=== PATIENT | male | born 1945 | race Caucasian/White ===

== ENCOUNTER → 2016-05-27 | Outpatient (CLI) | payer MEDICARE, OTHER ==
[2016-05-27 15:29] LABS: ABSOLUTE EOSINOPHILS # (AUTO) 0.2 10^3/uL (0.0-0.6); ABSOLUTE LYMPHOCYTES (AUTO) 1.6 10^3/uL (0.5-4.7); ABSOLUTE MONOCYTES (AUTO) 0.8 10^3/uL (0.1-1.4); ABSOLUTE NEUT (AUTO) 8.6 10^3/uL (1.7-8.2); BASOPHILS % (AUTO) 0.3 % (0-2); HEMATOCRIT 44.1 % (37.9-51.0); HEMOGLOBIN 14.8 g/dL (13.5-17.0); HGB HCT DIFFERENCE 0.3; LYMPHOCYTES % (AUTO) 14.3 % (13-45); MEAN CORPUSCULAR HEMOGLOBIN 27.4 pg (27.0-33.4); MEAN CORPUSCULAR HGB CONC 33.5 g/dL (32.0-36.0); MEAN CORPUSCULAR VOLUME 82 fl (80-97); MONOCYTES % (AUTO) 7.5 % (3-13); RED CELL DISTRIBUTION WIDTH 15.5 % (11.5-14.0); SEGMENTED NEUTROPHILS % (AUTO) 75.9 % (42-78); WHITE BLOOD COUNT 11.3 10^3/uL (4.0-10.5)
[2016-05-27 15:53] LABS: ALANINE AMINOTRANSFERASE 68 U/L (21-72); ALBUMIN 4.4 g/dL (3.5-5.0); ALKALINE PHOSPHATASE 117 U/L (38-126); ANION GAP 11 (5-19); ASPARTATE AMINO TRANSFERASE 48 U/L (17-59); BILIRUBIN,TOTAL 0.6 mg/dL (0.2-1.3); BLOOD UREA NITROGEN 21 mg/dL (7-20); CALCIUM 9.8 mg/dL (8.4-10.2); CARBON DIOXIDE 36 mmol/L (22-30); CHLORIDE 97 mmol/L (98-107); CREATININE RESULT 0.89 mg/dL (0.52-1.25); GLUCOSE 106 mg/dL (75-110); MAGNESIUM 1.9 mg/dL (1.6-2.3); POTASSIUM 4.3 mmol/L (3.6-5.0); SODIUM 144.3 mmol/L (137-145); TOTAL PROTEIN 7.5 g/dL (6.3-8.2)
== END ==
LOC: LAB 15:08
PROVIDERS: ATTEND Internal Medicine
DX: I12.9 Hypertensive chronic kidney disease with stage 1 through stage 4 chronic kidney disease, or unspecified chronic kidney disease (principal); N18.9 Chronic kidney disease, unspecified; I50.9 Heart failure, unspecified; E83.42 Hypomagnesemia
CPT/HCPCS: 36415; 80053; 83735; 84443; 85025

== ENCOUNTER → 2016-06-13 | Outpatient (CLI) | payer MEDICARE, OTHER ==
[2016-06-13 14:23] LABS: ABSOLUTE EOSINOPHILS # (AUTO) 0.2 10^3/uL (0.0-0.6); ABSOLUTE LYMPHOCYTES (AUTO) 1.3 10^3/uL (0.5-4.7); ABSOLUTE MONOCYTES (AUTO) 0.8 10^3/uL (0.1-1.4); ABSOLUTE NEUT (AUTO) 6.8 10^3/uL (1.7-8.2); BASOPHILS % (AUTO) 0.5 % (0-2); EOSINOPHILS % (AUTO) 2.5 % (0-6); HEMATOCRIT 41.6 % (37.9-51.0); HEMOGLOBIN 13.5 g/dL (13.5-17.0); HGB HCT DIFFERENCE -1.1; LYMPHOCYTES % (AUTO) 14.3 % (13-45); MEAN CORPUSCULAR HEMOGLOBIN 26.8 pg (27.0-33.4); MEAN CORPUSCULAR HGB CONC 32.4 g/dL (32.0-36.0); MEAN CORPUSCULAR VOLUME 83 fl (80-97); RED BLOOD COUNT 5.02 10^6/uL (4.35-5.55); RED CELL DISTRIBUTION WIDTH 15.6 % (11.5-14.0); SEGMENTED NEUTROPHILS % (AUTO) 73.7 % (42-78); WHITE BLOOD COUNT 9.2 10^3/uL (4.0-10.5)
[2016-06-13 14:48] LABS: ALANINE AMINOTRANSFERASE 66 U/L (21-72); ALBUMIN 3.5 g/dL (3.5-5.0); ALKALINE PHOSPHATASE 100 U/L (38-126); ANION GAP 12 (5-19); ASPARTATE AMINO TRANSFERASE 57 U/L (17-59); BILIRUBIN,TOTAL 0.6 mg/dL (0.2-1.3); BLOOD UREA NITROGEN 22 mg/dL (7-20); CALCIUM 9.3 mg/dL (8.4-10.2); CARBON DIOXIDE 31 mmol/L (22-30); CHLORIDE 99 mmol/L (98-107); CREATININE RESULT 1.22 mg/dL (0.52-1.25); GLUCOSE 121 mg/dL (75-110); MAGNESIUM 1.6 mg/dL (1.6-2.3); POTASSIUM 4.8 mmol/L (3.6-5.0); SODIUM 141.6 mmol/L (137-145); TOTAL PROTEIN 7.2 g/dL (6.3-8.2)
== END ==
LOC: LAB 14:05
PROVIDERS: ATTEND Internal Medicine
DX: I50.9 Heart failure, unspecified (principal); E11.9 Type 2 diabetes mellitus without complications
CPT/HCPCS: 36415; 80053; 83735; 85025

== ENCOUNTER 2016-06-17 10:58 | Inpatient (IN) | payer MEDICARE, OTHER ==
[2016-06-17] MEDS ORDERED: DEXTROSE 50%-WATER 25 GM/50 ML DISP.SYRIN IV PRN ×2 (12:03)
[2016-06-17] MEDS ORDERED: GLUCAGON,HUMAN RECOMB 1 MG INJ IM PRN (12:03)
[2016-06-17] MEDS ORDERED: DEXTROSE 40% GEL 15 GM TUBE PO PRN ×2 (12:03)
[2016-06-17] MEDS ORDERED: GENTAMICIN SULFATE 0 MG in DEXTROSE 5%-WATER 100 ML IV NR (12:15)
[2016-06-17] MEDS ORDERED: VANCOMYCIN HCL 0 MG in DEXTROSE 5%-WATER 250 ML IV NR (12:15)
--- NOTE | 2016-06-17 12:20 | PDOC H&P ---
History of Present Illness Admission Date/PCP: 06/17/16 10:58 NEO WADDELL, Patient complains of: Right lower extremity redness swelling and an open wound History of Present Illness: Ned ODOM JR is a 70 year old male Past Medical History Cardiac Medical History: Reports: Coronary Artery Disease, Hyperlipidema, Hypertension, Peripheral Vascular Disease Pulmonary Medical History: Reports: Chronic Obstructive Pulmonary Disease (COPD) Endocrine Medical History: Reports: Diabetes Mellitus Type 2 Renal/ Medical History: Reports: Chronic Kidney Disease Malignancy Medical History: Reports: None GI Medical History: Reports: None Musculoskeltal Medical History: Reports: Arthritis Psychiatric Medical History: Reports: None Traumatic Medical History: Reports: None Hematology: Reports: None Past Surgical History Past Surgical History: Reports: Appendectomy, Cholecystectomy, Herniorrhaphy, Orthopedic Surgery Social History Information Source: Patient Lives with: Alone Smoking Status: Current Every Day Smoker Cigars Per Day: 1 Number of Years Smokin Frequency of Alcohol Use: Social Drugs: None - Advance Directive Resuscitation Status: Full Code Family History Parental Family History Reviewed: Yes Children Family History Reviewed: Yes Sibling(s) Family History Reviewed.: Yes Medication/Allergy Allergies/Adverse Reactions: Penicillins Allergy (Intermediate, Verified 06/17/16 11:57) Review of Systems All systems: as per PMH Physical Exam General appearance: PRESENT: morbidly obese, severe distress Head exam: PRESENT: atraumatic Eye exam: PRESENT: conjunctiva pink, EOMI, PERRLA Neck exam: ABSENT: carotid bruit Respiratory exam: PRESENT: crackles, rhonchi Cardiovascular exam: PRESENT: RRR, +S1, +S2 Pulses: PRESENT: +1 pedal pulses bilateral GI/Abdominal exam: PRESENT: normal bowel sounds, soft Extremities exam: PRESENT: calf tenderness, pedal edema Musculoskeletal exam: PRESENT: ambulatory Neurological exam: PRESENT: alert, awake Skin exam: PRESENT: abrasion, erythema, skin tears, warm
[2016-06-17 13:47] LABS: ABSOLUTE BASOPHILS # (AUTO) 0.1 10^3/uL (0.0-0.2); ABSOLUTE EOSINOPHILS # (AUTO) 0.3 10^3/uL (0.0-0.6); ABSOLUTE LYMPHOCYTES (AUTO) 1.2 10^3/uL (0.5-4.7); ABSOLUTE NEUT (AUTO) 7.9 10^3/uL (1.7-8.2); BASOPHILS % (AUTO) 0.7 % (0-2); EOSINOPHILS % (AUTO) 2.5 % (0-6); HEMATOCRIT 40.8 % (37.9-51.0); HEMOGLOBIN 13.5 g/dL (13.5-17.0); HGB HCT DIFFERENCE -0.3; LYMPHOCYTES % (AUTO) 11.6 % (13-45); MEAN CORPUSCULAR HEMOGLOBIN 27.2 pg (27.0-33.4); MEAN CORPUSCULAR VOLUME 83 fl (80-97); MONOCYTES % (AUTO) 9.3 % (3-13); RED BLOOD COUNT 4.94 10^6/uL (4.35-5.55); RED CELL DISTRIBUTION WIDTH 15.8 % (11.5-14.0); SEGMENTED NEUTROPHILS % (AUTO) 75.9 % (42-78); WHITE BLOOD COUNT 10.4 10^3/uL (4.0-10.5)
[2016-06-17 14:06] LABS: ALANINE AMINOTRANSFERASE 58 U/L (21-72); ALKALINE PHOSPHATASE 106 U/L (38-126); ANION GAP 11 (5-19); ASPARTATE AMINO TRANSFERASE 45 U/L (17-59); BILIRUBIN,TOTAL 0.6 mg/dL (0.2-1.3); BLOOD UREA NITROGEN 20 mg/dL (7-20); CALCIUM 8.7 mg/dL (8.4-10.2); CARBON DIOXIDE 33 mmol/L (22-30); CHLORIDE 97 mmol/L (98-107); CREATININE RESULT 1.05 mg/dL (0.52-1.25); GLUCOSE 145 mg/dL (75-110); SODIUM 140.9 mmol/L (137-145); TOTAL PROTEIN 7.3 g/dL (6.3-8.2)
[2016-06-17] MEDS ORDERED: ENOXAPARIN SODIUM INJ 40 MG/0.4 ML DISP.SYRIN SUBCUT ONE (15:15)
[2016-06-17] MEDS: VANCOMYCIN HCL 1,000 MG in DEXTROSE 5%-WATER 250 ML IV SCH (15:55)
[2016-06-17] MEDS: NORMAL SALINE 1000 ML 1,000 ML IV PRN (15:56)
[2016-06-17] MEDS: IPRATROPIUM/ALBUTEROL 0.5-2.5 MG/3 ML AMPUL NEB SCH ×2 (16:14→19:53)
[2016-06-17] MEDS: GENTAMICIN SULFATE 140 MG in DEXTROSE 5%-WATER 100 ML IV SCH (17:58)
--- NOTE | 2016-06-17 22:04 | PDOC CONSULTATION ---
History of Present Illness Admission Date/PCP: 06/17/16 10:58 NEO NEWSOMEARMANDSAUMYA, History of Present Illness: 70-year-old white male with multiple comorbidities, which he tends to minimize or deny. He is less than cooperative with details of his history, and critical of health care providers and healthcare establishment. Reports 2 weeks of double vision, 2 weeks of sinus infection 2 weeks of bronchitis and 10 days of right leg swelling. He reports that the bilateral lower extremities have chronic swelling which progresses throughout the day but is greatly improved in the morning. He reports the right is usually worse than the left. He has had a left total knee replacement. He reports that he needs a right total knee replacement, but in the course of being worked up for surgery 2 years ago was found to have coronary artery disease and had a stent placed in November 2014. He has been wearing a brace over his right knee, usually over his pants. Approximately week and a half ago he were the brace directly over the skin, and at the end of the day noticed a large blister on his medial looney approximately 6 inches below the lowest portion of the knee brace. He reports tenderness, erythema and induration surrounding this large blister. The blister has since popped and has a dry eschar. He reports 'its healed now,' although the lower leg is still involved from the foot up to the knee with erythema, induration and severe edema. Additionally on further inspection, a weeping lesion is noticed on the dorsal surface of the first great toe, at the junction of the toenail and the skin. On questioning, he reports his pitbull stepped on his toe there. There is hair and dirt in both the sore on his toe and the sore on his medial looney. Review of systems is positive for double vision both over the last 2 weeks as well as 8 weeks during last summer, attributed to third nerve palsy. Also positive for shortness breath/dyspnea on exertion, chronic sinus infections, chronic bilateral lower extremity swelling, cataracts. Past Medical History Cardiac Medical History: Reports: Coronary Artery Disease, Hyperlipidema Pulmonary Medical History: Reports: Bronchitis, Chronic Obstructive Pulmonary Disease (COPD) EENT Medical History: Reports: Other - Chronic sinus infections Endocrine Medical History: Reports: Diabetes Mellitus Type 2 Musculoskeltal Medical History: Reports: Arthritis Psychiatric Medical History: Reports: Tobacco Dependency Infectious Medical History: Denies: Hepatitis C Past Surgical History Past Surgical History: Reports: Cholecystectomy, Herniorrhaphy - Bilateral inguinal, Orthopedic Surgery - Left TKR, Bilat biceps tendon repair, Right rotator cuff, Back x2 Social History Information Source: Patient Lives with: Alone Smoking Status: Current Every Day Smoker - Smoked up to 2 packs per day cigarettes from age 17 until age 69. Then quit cigarettes last year and switched to 2 cigars per day. Cigars Per Day: 1 Number of Years Smokin Last Time Smoked: 06/17/16 Frequency of Alcohol Use: Social Hx Recreational Drug Use: No - remote use Drugs: None Hx Prescription Drug Abuse: No - Advance Directive Resuscitation Status: Full Code Family History Family History: Malignancy - 3 maternal uncles with colon cancer Parental Family History Reviewed: Yes Children Family History Reviewed: Yes Sibling(s) Family History Reviewed.: Yes Medication/Allergy Home Medications: Albuterol Sulfate [Ventolin Hfa] 1 puff IH PRN PRN 06/17/16 Aspirin [Aspirin EC] 81 mg PO QHS 06/17/16 Atorvastatin Calcium [Lipitor 40 mg Tablet] 20 mg PO DAILY 06/17/16 Cetirizine HCl [Zyrtec 10 mg Tablet] 20 mg PO DAILY 06/17/16 Doxazosin Mesylate [Cardura 2 mg Tablet] 2 mg PO DAILY 06/17/16 Furosemide [Lasix 40 mg Tablet] 40 mg PO DAILY 06/17/16 Glimepiride [Amaryl] 2 mg PO QHS 06/17/16 Glimepiride [Amaryl] 4 mg PO QAM 06/17/16 Metformin HCl [Glucophage] 500 mg PO DAILY 06/17/16 Metolazone [Zaroxolyn 2.5 mg Tablet] 2.5 mg PO QHS 06/17/16 Omeprazole 40 mg PO DAILY 06/17/16 Potassium Chloride [K-Tab ER] 40 meq PO DAILY 06/17/16 Allergies/Adverse Reactions: Penicillins Allergy (Intermediate, Verified 06/17/16 11:57) Review of Systems All systems: reviewed and no additional remarkable complaints except as stated Physical Exam Vital Signs: Temp Pulse Resp BP Pulse Ox 98.1 F 75 20 138/48 H 94 06/17/16 20:00 06/17/16 20:00 06/17/16 20:00 06/17/16 20:00 06/17/16 20:00 Intake & Output 06/16/16 06/17/16 06/18/16 06:59 06:59 06:59 Intake Total 200 Balance 200 Weight 113.852 kg General appearance: PRESENT: mild distress - Mild shortness breath/dyspnea on exertion after returning from a walk in the halls. After several minutes, breathing normalizes/becomes unlabored., morbidly obese Head exam: PRESENT: normocephalic Eye exam: PRESENT: EOMI Teeth exam: PRESENT: poor dentation Respiratory exam: PRESENT: decreased breath sounds, wheezes Cardiovascular exam: PRESENT: other - Difficult to auscultate, seems regular. GI/Abdominal exam: PRESENT: soft. ABSENT: tenderness Extremities exam: PRESENT: other - Bilateral severe lower extremity edema. Right leg greater than left. Right leg with erythema, induration and tenderness from foot up to knee. Large eschar over right lower leg medial looney at the site of previous blister. Has hair and dirt stuck and eschar. The wound is cleansed with soapy water and gauze. Also has fibrinopurulent drainage from a subcentimeter wound on the right first toe at the junction of the nailbed and the skin. This wound has hair (dog hair?) and dirt in it. This wound is also cleansed with soapy water and gauze. Musculoskeletal exam: PRESENT: ambulatory Neurological exam: PRESENT: alert, oriented to person, oriented to place, oriented to time, oriented to situation Psychiatric exam: PRESENT: other - gruff Skin exam: PRESENT: erythema - Right lower extremity Results Laboratory Results: 06/17/16 13:37 06/17/16 13:37 06/17/16 06/17/16 13:37 13:37 WBC 10.4 RBC 4.94 Hgb 13.5 Hct 40.8 MCV 83 MCH 27.2 MCHC 33.0 RDW 15.8 H Plt Count 213 Seg Neutrophils % 75.9 Lymphocytes % 11.6 L Monocytes % 9.3 Eosinophils % 2.5 Basophils % 0.7 Absolute Neutrophils 7.9 Absolute Lymphocytes 1.2 Absolute Monocytes 1.0 Absolute Eosinophils 0.3 Absolute Basophils 0.1 Sodium 140.9 Potassium 4.0 Chloride 97 L Carbon Dioxide 33 H Anion Gap 11 BUN 20 Creatinine 1.05 Est GFR ( Amer) > 60 Est GFR (Non-Af Amer) > 60 Glucose 145 H Calcium 8.7 Total Bilirubin 0.6 AST 45 ALT 58 Alkaline Phosphatase 106 Total Protein 7.3 Albumin 4.0 Impressions: Chest X-Ray 06/17/16 00:00 IMPRESSION: NO SIGNIFICANT RADIOGRAPHIC FINDING IN THE CHEST. Assessment & Plan - Diagnosis (1) Ulcer of right looney limited to breakdown of skin Is this a current diagnosis for this admission?: YesPlan: Right leg medial looney, Area which patient reported was previously a blister now has a dry eschar which is cleansed of hair and dirt. Wound care with daily bacitracin and clean dressings. Also has a small lesion on the first great toe , dorsal surface at the junction of the nail bed in the skin, reportedly due to his dog stepping on his foot. This is also cleansed. Wound care with bacitracin and clean dry dressing. In great detail, described to him a regimen of walking and leg elevation. Prescribed leg elevation, over the level of the heart, 45 minutes each time, 3 times a day, spread throughout the day. Suspect some component of congestive heart failure. BNP for morning. (2) COPD (chronic obstructive pulmonary disease) Is this a current diagnosis for this admission?: Yes (3) Cellulitis of right lower extremity Is this a current diagnosis for this admission?: YesPlan: Agree with antibiotics. (4) Fluid retention Is this a current diagnosis for this admission?: YesPlan: In great detail, described to him a regimen of walking and leg elevation. Prescribed leg elevation, over the level of the heart, 45 minutes each time, 3 times a day, spread throughout the day. Suspect some component of congestive heart failure. BNP for morning.
[2016-06-18] MEDS: VANCOMYCIN HCL 1,000 MG in DEXTROSE 5%-WATER 250 ML IV SCH ×2 (03:59→15:45)
[2016-06-18] MEDS ORDERED: IPRATROPIUM/ALBUTEROL 0.5-2.5 MG/3 ML AMPUL NEB PRN (04:06)
[2016-06-18 06:37] LABS: ABSOLUTE BASOPHILS # (AUTO) 0.1 10^3/uL (0.0-0.2); ABSOLUTE EOSINOPHILS # (AUTO) 0.2 10^3/uL (0.0-0.6); ABSOLUTE LYMPHOCYTES (AUTO) 1.4 10^3/uL (0.5-4.7); ABSOLUTE NEUT (AUTO) 7.9 10^3/uL (1.7-8.2); BASOPHILS % (AUTO) 1.1 % (0-2); EOSINOPHILS % (AUTO) 2.1 % (0-6); HEMATOCRIT 41.1 % (37.9-51.0); HEMOGLOBIN 13.4 g/dL (13.5-17.0); HGB HCT DIFFERENCE -0.9; LYMPHOCYTES % (AUTO) 13.4 % (13-45); MEAN CORPUSCULAR HEMOGLOBIN 27.1 pg (27.0-33.4); MEAN CORPUSCULAR HGB CONC 32.5 g/dL (32.0-36.0); MEAN CORPUSCULAR VOLUME 83 fl (80-97); MONOCYTES % (AUTO) 9.5 % (3-13); RED BLOOD COUNT 4.94 10^6/uL (4.35-5.55); RED CELL DISTRIBUTION WIDTH 15.7 % (11.5-14.0); SEGMENTED NEUTROPHILS % (AUTO) 73.9 % (42-78); WHITE BLOOD COUNT 10.6 10^3/uL (4.0-10.5)
[2016-06-18] MEDS: ENOXAPARIN SODIUM INJ 40 MG/0.4 ML DISP.SYRIN SUBCUT SCH (08:21)
[2016-06-18] MEDS: NORMAL SALINE 1000 ML 1,000 ML IV PRN (08:22)
[2016-06-18] MEDS: IPRATROPIUM/ALBUTEROL 0.5-2.5 MG/3 ML AMPUL NEB SCH ×4 (09:10→20:30)
[2016-06-18] MEDS: FUROSEMIDE INJ/PF 40 MG/4 ML SDV IV SCH ×2 (09:22→22:06)
[2016-06-18] MEDS: BACITRACIN ZINC OINTMENT 15 GM TP SCH (09:22)
[2016-06-18] MEDS ORDERED: NORMAL SALINE 1000 ML 1,000 ML IV PRN (09:50)
[2016-06-18] MEDS: INSULIN LISPRO 100 UNIT/ML 3 ML VIAL SUBCUT PRN ×2 (11:45→16:57)
--- NOTE | 2016-06-18 12:45 | PDOC PROGRESS REPORT ---
Subjective Progress Note for:: 06/18/16 Subjective:: The patient states to feel better. He was very uncomfortable in bed but had his legs up. His vital signs are stable Physical Exam Vital Signs: Temp Pulse Resp BP Pulse Ox 98.7 F 56 L 18 128/61 H 95 06/18/16 11:51 06/18/16 11:51 06/18/16 11:51 06/18/16 11:51 06/18/16 11:51 Intake & Output 06/17/16 06/18/16 06/19/16 06:59 06:59 06:59 Intake Total 1418 Output Total 150 Balance 1268 Weight 113.852 kg General appearance: PRESENT: mild distress Head exam: PRESENT: atraumatic Eye exam: PRESENT: conjunctiva pink Neck exam: ABSENT: carotid bruit Respiratory exam: PRESENT: rhonchi Cardiovascular exam: PRESENT: RRR Pulses: PRESENT: +1 pedal pulses bilateral GI/Abdominal exam: PRESENT: normal bowel sounds Extremities exam: PRESENT: pedal edema, tenderness, other Additional comments: Moderate erythema between the ankle and the knee Musculoskeletal exam: PRESENT: ambulatory Neurological exam: PRESENT: alert Results Laboratory Results: 06/18/16 05:56 06/17/16 13:37 06/17/16 06/17/16 06/18/16 13:37 13:37 05:56 WBC 10.4 10.6 H RBC 4.94 4.94 Hgb 13.5 13.4 L Hct 40.8 41.1 MCV 83 83 MCH 27.2 27.1 MCHC 33.0 32.5 RDW 15.8 H 15.7 H Plt Count 213 222 Seg Neutrophils % 75.9 73.9 Lymphocytes % 11.6 L 13.4 Monocytes % 9.3 9.5 Eosinophils % 2.5 2.1 Basophils % 0.7 1.1 Absolute Neutrophils 7.9 7.9 Absolute Lymphocytes 1.2 1.4 Absolute Monocytes 1.0 1.0 Absolute Eosinophils 0.3 0.2 Absolute Basophils 0.1 0.1 Sodium 140.9 Potassium 4.0 Chloride 97 L Carbon Dioxide 33 H Anion Gap 11 BUN 20 Creatinine 1.05 Est GFR ( Amer) > 60 Est GFR (Non-Af Amer) > 60 Glucose 145 H Calcium 8.7 Magnesium Total Bilirubin 0.6 AST 45 ALT 58 Alkaline Phosphatase 106 Total Protein 7.3 Albumin 4.0 TSH 06/18/16 06/18/16 05:56 05:56 WBC RBC Hgb Hct MCV MCH MCHC RDW Plt Count Seg Neutrophils % Lymphocytes % Monocytes % Eosinophils % Basophils % Absolute Neutrophils Absolute Lymphocytes Absolute Monocytes Absolute Eosinophils Absolute Basophils Sodium Potassium Chloride Carbon Dioxide Anion Gap BUN Creatinine Est GFR ( Amer) Est GFR (Non-Af Amer) Glucose Calcium Magnesium 1.9 Total Bilirubin AST ALT Alkaline Phosphatase Total Protein Albumin TSH 2.94 06/18/16 05:56 NT-Pro-B Natriuret Pep 228 Impressions: Chest X-Ray 06/17/16 00:00 IMPRESSION: NO SIGNIFICANT RADIOGRAPHIC FINDING IN THE CHEST. Assessment & Plan - Diagnosis (1) Diabetic ulcer of right lower leg Is this a current diagnosis for this admission?: YesPlan: We will continue with local wound care and antibiotics. Keep leg elevation with a felder boot (2) Cellulitis of right lower extremity Is this a current diagnosis for this admission?: YesPlan: Continue antibiotics and local wound care (3) COPD (chronic obstructive pulmonary disease) Is this a current diagnosis for this admission?: YesPlan: Continue nebulization treatments (4) Fluid retention Is this a current diagnosis for this admission?: Yes (5) Fluid retention in legs Qualifiers: Laterality: bilateral Qualified Code(s): R60.0 - Localized edema Is this a current diagnosis for this admission?: YesPlan: We'll keep leg elevation and start Lasix IV (6) Diabetes mellitus type II, controlled Qualifiers: Diabetes mellitus complication status: with skin complications Diabetes mellitus complication detail: with other skin complication Is this a current diagnosis for this admission?: YesPlan: We'll continue with Accu-Cheks and sliding scale insulin
--- NOTE | 2016-06-18 12:57 | XCELERA REPORT ---
[address] [address] Lower Extremity Venous Evaluation Name: Ned ODOM JR Age: 70 yrs Gender: Male : 1945 Patient Status: Inpatient Patient Location: [id number] Study Date: 06/17/2016 03:31 PM Procedure: A bilateral duplex scan of the lower extremity veins was performed. The evaluation included responses to compression and other maneuvers. Reason For Study: bilateral lower extremity swelling Ordering Physician: NEO WADDELL Performed By: Blessing Peck Right Sided Venous Evaluation Normal vessel filling wall to wall, compression and augmentation as well as Colour flow down to the infrageniculate veins. Left Sided Venous Evaluation Normal vessel filling wall to wall, compression and augmentation as well as Colour flow down to the infrageniculate veins. Interpretation Summary No duplex evidence of DVT or obstruction in the bilateral lower extremities. : NEO WADDELL [place]
[2016-06-18] MEDS: GENTAMICIN SULFATE 140 MG in DEXTROSE 5%-WATER 100 ML IV SCH (18:27)
[2016-06-19] MEDS: VANCOMYCIN HCL 1,000 MG in DEXTROSE 5%-WATER 250 ML IV SCH (04:14)
[2016-06-19 04:16] LABS: CREATININE RESULT 1.07 mg/dL (0.52-1.25)
--- NOTE | 2016-06-19 07:58 | PDOC PROGRESS REPORT ---
Subjective Progress Note for:: 06/19/16 Subjective:: The patient states to feel much better. The redness and the discomfort in the right leg have improved. He has been trying to keep the legs elevated. Physical Exam Vital Signs: Temp Pulse Resp BP Pulse Ox 97.8 F 70 23 H 121/58 L 93 06/19/16 00:00 06/19/16 00:00 06/19/16 00:00 06/19/16 00:00 06/19/16 00:00 Intake & Output 06/18/16 06/19/16 06/20/16 06:59 06:59 06:59 Intake Total 1418 962 Output Total 150 825 Balance 1268 137 Weight 113.852 kg 113 kg General appearance: PRESENT: mild distress Head exam: PRESENT: atraumatic Eye exam: PRESENT: conjunctiva pink Neck exam: ABSENT: carotid bruit, JVD Respiratory exam: PRESENT: rhonchi Cardiovascular exam: PRESENT: RRR, +S1, +S2 Pulses: PRESENT: +1 pedal pulses bilateral GI/Abdominal exam: PRESENT: normal bowel sounds, soft Extremities exam: PRESENT: full ROM, pedal edema Neurological exam: PRESENT: alert, awake Skin exam: PRESENT: abrasion, erythema, skin tears Results Laboratory Results: 06/18/16 05:56 06/19/16 03:47 06/19/16 03:47 Creatinine 1.07 Est GFR ( Amer) > 60 Est GFR (Non-Af Amer) > 60 06/18/16 05:56 NT-Pro-B Natriuret Pep 228 Impressions: Chest X-Ray 06/17/16 00:00 IMPRESSION: NO SIGNIFICANT RADIOGRAPHIC FINDING IN THE CHEST. Assessment & Plan - Diagnosis (1) Diabetic ulcer of right lower leg Is this a current diagnosis for this admission?: YesPlan: We will continue with local wound care and antibiotics. Keep leg elevation with a felder boot (2) Cellulitis of right lower extremity Is this a current diagnosis for this admission?: YesPlan: Continue antibiotics and local wound care (3) COPD (chronic obstructive pulmonary disease) Is this a current diagnosis for this admission?: YesPlan: Continue nebulization treatments (4) Fluid retention Is this a current diagnosis for this admission?: YesPlan: We'll stop IV fluids and continue with Lasix IV (5) Fluid retention in legs Qualifiers: Laterality: bilateral Qualified Code(s): R60.0 - Localized edema Is this a current diagnosis for this admission?: Yes (6) Diabetes mellitus type II, controlled Qualifiers: Diabetes mellitus complication status: with skin complications Diabetes mellitus complication detail: with other skin complication Is this a current diagnosis for this admission?: YesPlan: We'll continue with Accu-Cheks and sliding scale insulin
[2016-06-19] MEDS ORDERED: (PENDING PHARMACY ID) (Glimepiride [Amaryl] 4 MG) PO SCH (08:00)
--- NOTE | 2016-06-19 08:06 | PDOC PROGRESS REPORT ---
Subjective Progress Note for:: 06/18/16 Subjective:: Late entry. Reports decreased redness and swelling. He has been trying to sit in a chair with his leg up on the bed. Physical Exam Vital Signs: Temp Pulse Resp BP Pulse Ox 97.8 F 70 23 H 121/58 L 93 06/19/16 00:00 06/19/16 00:00 06/19/16 00:00 06/19/16 00:00 06/19/16 00:00 Intake & Output 06/18/16 06/19/16 06/20/16 06:59 06:59 06:59 Intake Total 1418 962 Output Total 150 825 Balance 1268 137 Weight 113.852 kg 113 kg General appearance: PRESENT: no acute distress Head exam: PRESENT: normocephalic Extremities exam: PRESENT: other - Still with bilateral edema but definite decrease in both erythema, induration and edema in his right leg and foot. Dressings changed. Bacitracin and gauze placed over both the first metatarsal head sore as well as the medial looney sore and then gauze 4 x 4's and then Kerlix roll and then an Jose wrap. Neurological exam: PRESENT: alert, oriented to situation Skin exam: PRESENT: other - See extremities Results Laboratory Results: 06/18/16 05:56 06/19/16 03:47 06/19/16 03:47 Creatinine 1.07 Est GFR ( Amer) > 60 Est GFR (Non-Af Amer) > 60 06/18/16 05:56 NT-Pro-B Natriuret Pep 228 Impressions: Chest X-Ray 06/17/16 00:00 IMPRESSION: NO SIGNIFICANT RADIOGRAPHIC FINDING IN THE CHEST. Assessment & Plan - Diagnosis (1) Ulcer of right looney limited to breakdown of skin Is this a current diagnosis for this admission?: YesPlan: Improving. Continue daily wound care. Again demonstrated elevation of the legs over the level of the head and explained the pathophysiology. Surgery will sign off. Reconsult as needed. (2) COPD (chronic obstructive pulmonary disease) Is this a current diagnosis for this admission?: Yes (3) Cellulitis of right lower extremity Is this a current diagnosis for this admission?: YesPlan: Improving. Continue daily wound care. Again demonstrated elevation of the legs over the level of the head and explained the pathophysiology. Surgery will sign off. Reconsult as needed. (4) Fluid retention Is this a current diagnosis for this admission?: Yes
[2016-06-19] MEDS: ENOXAPARIN SODIUM INJ 40 MG/0.4 ML DISP.SYRIN SUBCUT SCH (08:09)
[2016-06-19] MEDS: IPRATROPIUM/ALBUTEROL 0.5-2.5 MG/3 ML AMPUL NEB SCH ×4 (08:52→19:36)
[2016-06-19] MEDS: INSULIN LISPRO 100 UNIT/ML 3 ML VIAL SUBCUT PRN ×3 (09:05→22:08)
[2016-06-19] MEDS: FUROSEMIDE INJ/PF 40 MG/4 ML SDV IV SCH ×2 (09:06→22:09)
[2016-06-19] MEDS: BACITRACIN ZINC OINTMENT 15 GM TP SCH (09:08)
[2016-06-19] MEDS: METFORMIN HCL 500 MG TABLET PO SCH (09:55)
[2016-06-19] MEDS: CETIRIZINE 10 MG TABLET PO SCH (09:55)
[2016-06-19] MEDS: DOXAZOSIN MESYLATE 2 MG TABLET PO SCH (09:56)
[2016-06-19] MEDS: LANSOPRAZOLE 30 MG TAB.RAP.DR PO SCH (09:57)
[2016-06-19] MEDS: POTASSIUM CHLORIDE 10 MEQ TABLET.SA PO SCH (09:57)
[2016-06-19] MEDS ORDERED: (PENDING PHARMACY ID) (Potassium Chloride [K-Tab Er] 40 MEQ) PO SCH (10:00)
[2016-06-19] MEDS ORDERED: GLIMEPIRIDE 4 MG TABLET PO ONE (10:00)
[2016-06-19] MEDS: PIPERACILLIN SODIUM/TAZOBACTAM 3.375 GM in NORMAL SALINE 100 ML IV SCH ×2 (13:11→17:23)
[2016-06-19] MEDS: VANCOMYCIN HCL 1,250 MG in DEXTROSE 5%-WATER 250 ML IV SCH (15:08)
[2016-06-19] MEDS: GLIMEPIRIDE 1 MG TABLET PO SCH (22:09)
[2016-06-19] MEDS: ATORVASTATIN CALCIUM 40 MG TABLET PO SCH (22:09)
[2016-06-19] MEDS: ASPIRIN 81 MG TABLET, ENT COATED PO SCH (22:09)
[2016-06-19] MEDS: METOLAZONE 2.5 MG TABLET PO SCH (22:09)
[2016-06-20] MEDS: PIPERACILLIN SODIUM/TAZOBACTAM 3.375 GM in NORMAL SALINE 100 ML IV SCH ×4 (00:30→18:01)
[2016-06-20] MEDS: VANCOMYCIN HCL 1,250 MG in DEXTROSE 5%-WATER 250 ML IV SCH ×2 (03:46→18:01)
[2016-06-20 06:38] LABS: ABSOLUTE BASOPHILS # (AUTO) 0.1 10^3/uL (0.0-0.2); ABSOLUTE EOSINOPHILS # (AUTO) 0.3 10^3/uL (0.0-0.6); ABSOLUTE LYMPHOCYTES (AUTO) 1.5 10^3/uL (0.5-4.7); ABSOLUTE MONOCYTES (AUTO) 0.8 10^3/uL (0.1-1.4); BASOPHILS % (AUTO) 0.7 % (0-2); EOSINOPHILS % (AUTO) 3.8 % (0-6); HEMATOCRIT 43.7 % (37.9-51.0); HEMOGLOBIN 14.3 g/dL (13.5-17.0); HGB HCT DIFFERENCE -0.8; LYMPHOCYTES % (AUTO) 17.3 % (13-45); MEAN CORPUSCULAR HEMOGLOBIN 27.1 pg (27.0-33.4); MEAN CORPUSCULAR HGB CONC 32.8 g/dL (32.0-36.0); MEAN CORPUSCULAR VOLUME 83 fl (80-97); MONOCYTES % (AUTO) 9.5 % (3-13); RED BLOOD COUNT 5.28 10^6/uL (4.35-5.55); RED CELL DISTRIBUTION WIDTH 15.5 % (11.5-14.0); SEGMENTED NEUTROPHILS % (AUTO) 68.7 % (42-78); WHITE BLOOD COUNT 8.8 10^3/uL (4.0-10.5)
[2016-06-20 06:58] LABS: ALANINE AMINOTRANSFERASE 81 U/L (21-72); ALBUMIN 4.3 g/dL (3.5-5.0); ALKALINE PHOSPHATASE 95 U/L (38-126); ANION GAP 13 (5-19); ASPARTATE AMINO TRANSFERASE 85 U/L (17-59); BILIRUBIN,TOTAL 0.8 mg/dL (0.2-1.3); BLOOD UREA NITROGEN 24 mg/dL (7-20); CALCIUM 9.1 mg/dL (8.4-10.2); CARBON DIOXIDE 33 mmol/L (22-30); CHLORIDE 93 mmol/L (98-107); CREATININE RESULT 1.04 mg/dL (0.52-1.25); GLUCOSE 172 mg/dL (75-110); MAGNESIUM 1.9 mg/dL (1.6-2.3); POTASSIUM 3.7 mmol/L (3.6-5.0); SODIUM 138.8 mmol/L (137-145); TOTAL PROTEIN 7.5 g/dL (6.3-8.2)
[2016-06-20] MEDS: ENOXAPARIN SODIUM INJ 40 MG/0.4 ML DISP.SYRIN SUBCUT SCH (08:25)
--- NOTE | 2016-06-20 08:30 | PDOC PROGRESS REPORT ---
Subjective Progress Note for:: 06/20/16 Subjective:: The patient states to feel better. His leg is less red and swollen. He denies any pain. Physical Exam Vital Signs: Temp Pulse Resp BP Pulse Ox 98.3 F 83 21 H 125/44 L 95 06/20/16 00:00 06/20/16 00:00 06/20/16 00:00 06/20/16 00:00 06/20/16 00:00 Intake & Output 06/19/16 06/20/16 06/21/16 06:59 06:59 06:59 Intake Total 962 1606 Output Total 825 2300 Balance 137 -694 Weight 113 kg 113.1 kg General appearance: PRESENT: no acute distress Head exam: PRESENT: atraumatic Eye exam: PRESENT: conjunctiva pink Neck exam: ABSENT: carotid bruit, JVD Respiratory exam: PRESENT: rhonchi Cardiovascular exam: PRESENT: RRR, +S1, +S2 Pulses: PRESENT: +1 pedal pulses bilateral GI/Abdominal exam: PRESENT: normal bowel sounds, soft Extremities exam: PRESENT: full ROM Musculoskeletal exam: PRESENT: ambulatory Neurological exam: PRESENT: alert Results Laboratory Results: 06/20/16 05:55 06/20/16 05:55 06/20/16 06/20/16 05:55 05:55 WBC 8.8 RBC 5.28 Hgb 14.3 Hct 43.7 MCV 83 MCH 27.1 MCHC 32.8 RDW 15.5 H Plt Count 217 Seg Neutrophils % 68.7 Lymphocytes % 17.3 Monocytes % 9.5 Eosinophils % 3.8 Basophils % 0.7 Absolute Neutrophils 6.0 Absolute Lymphocytes 1.5 Absolute Monocytes 0.8 Absolute Eosinophils 0.3 Absolute Basophils 0.1 Sodium 138.8 Potassium 3.7 Chloride 93 L Carbon Dioxide 33 H Anion Gap 13 BUN 24 H Creatinine 1.04 Est GFR ( Amer) > 60 Est GFR (Non-Af Amer) > 60 Glucose 172 H Calcium 9.1 Magnesium 1.9 Total Bilirubin 0.8 AST 85 H ALT 81 H Alkaline Phosphatase 95 Total Protein 7.5 Albumin 4.3 06/18/16 05:56 NT-Pro-B Natriuret Pep 228 Impressions: Chest X-Ray 06/17/16 00:00 IMPRESSION: NO SIGNIFICANT RADIOGRAPHIC FINDING IN THE CHEST. Assessment & Plan - Diagnosis (1) Diabetic ulcer of right lower leg Is this a current diagnosis for this admission?: YesPlan: Continue IV antibiotics and diuretics. Keep the leg elevated (2) Cellulitis of right lower extremity Is this a current diagnosis for this admission?: YesPlan: We'll remove the felder boot because of an open sore and the straps are riding right over it (3) COPD (chronic obstructive pulmonary disease) Is this a current diagnosis for this admission?: YesPlan: Continue nebulization treatments (4) Fluid retention Is this a current diagnosis for this admission?: YesPlan: We'll stop IV fluids and continue with Lasix IV (5) Fluid retention in legs Qualifiers: Laterality: bilateral Qualified Code(s): R60.0 - Localized edema Is this a current diagnosis for this admission?: YesPlan: We'll keep leg elevation and start Lasix IV (6) Diabetes mellitus type II, controlled Qualifiers: Diabetes mellitus complication status: with skin complications Diabetes mellitus complication detail: with other skin complication Is this a current diagnosis for this admission?: YesPlan: We'll continue with Accu-Cheks and sliding scale insulin
[2016-06-20] MEDS: IPRATROPIUM/ALBUTEROL 0.5-2.5 MG/3 ML AMPUL NEB SCH ×4 (08:46→21:14)
[2016-06-20] MEDS: POTASSIUM CHLORIDE 10 MEQ TABLET.SA PO SCH (10:25)
[2016-06-20] MEDS: METFORMIN HCL 500 MG TABLET PO SCH (10:27)
[2016-06-20] MEDS: DOXAZOSIN MESYLATE 2 MG TABLET PO SCH (10:27)
[2016-06-20] MEDS: GLIMEPIRIDE 4 MG TABLET PO SCH (10:28)
[2016-06-20] MEDS: CETIRIZINE 10 MG TABLET PO SCH (10:28)
[2016-06-20] MEDS: FUROSEMIDE INJ/PF 40 MG/4 ML SDV IV SCH ×2 (10:29→22:10)
[2016-06-20] MEDS: LANSOPRAZOLE 30 MG TAB.RAP.DR PO SCH (10:29)
[2016-06-20] MEDS: BACITRACIN ZINC OINTMENT 15 GM TP SCH (10:34)
[2016-06-20] MEDS: INSULIN LISPRO 100 UNIT/ML 3 ML VIAL SUBCUT PRN (11:19)
[2016-06-20 11:55] LABS: ARTERIAL BLOOD BASE EXCESS 5.4 mmol/L; ARTERIAL BLOOD O2 SATURATION 94.1 % (94-98)
[2016-06-20 19:38] LABS: GENTAMICIN-TROUGH < 0.6 ug/mL (<2.0); TROUGH DRAW TIME 1800
[2016-06-20] MEDS: ASPIRIN 81 MG TABLET, ENT COATED PO SCH (22:10)
[2016-06-20] MEDS: GLIMEPIRIDE 1 MG TABLET PO SCH (22:10)
[2016-06-20] MEDS: ATORVASTATIN CALCIUM 40 MG TABLET PO SCH (22:10)
[2016-06-20] MEDS: METOLAZONE 2.5 MG TABLET PO SCH (22:11)
[2016-06-21] MEDS: PIPERACILLIN SODIUM/TAZOBACTAM 3.375 GM in NORMAL SALINE 100 ML IV SCH ×2 (00:07→06:20)
[2016-06-21] MEDS: VANCOMYCIN HCL 1,250 MG in DEXTROSE 5%-WATER 250 ML IV SCH ×2 (04:19→17:41)
[2016-06-21] MEDS: IPRATROPIUM/ALBUTEROL 0.5-2.5 MG/3 ML AMPUL NEB SCH ×4 (08:48→20:13)
[2016-06-21 08:55] LABS: ABSOLUTE BASOPHILS # (AUTO) 0.1 10^3/uL (0.0-0.2); ABSOLUTE EOSINOPHILS # (AUTO) 0.3 10^3/uL (0.0-0.6); ABSOLUTE LYMPHOCYTES (AUTO) 1.7 10^3/uL (0.5-4.7); ABSOLUTE MONOCYTES (AUTO) 1.1 10^3/uL (0.1-1.4); ABSOLUTE NEUT (AUTO) 6.6 10^3/uL (1.7-8.2); BASOPHILS % (AUTO) 1.4 % (0-2); EOSINOPHILS % (AUTO) 3.5 % (0-6); HEMATOCRIT 40.6 % (37.9-51.0); HEMOGLOBIN 13.3 g/dL (13.5-17.0); HGB HCT DIFFERENCE -0.7; MEAN CORPUSCULAR HEMOGLOBIN 26.9 pg (27.0-33.4); MEAN CORPUSCULAR HGB CONC 32.6 g/dL (32.0-36.0); MEAN CORPUSCULAR VOLUME 83 fl (80-97); MONOCYTES % (AUTO) 11.1 % (3-13); RED BLOOD COUNT 4.92 10^6/uL (4.35-5.55); RED CELL DISTRIBUTION WIDTH 15.9 % (11.5-14.0); WHITE BLOOD COUNT 9.9 10^3/uL (4.0-10.5)
[2016-06-21 09:08] LABS: ANION GAP 12 (5-19); BLOOD UREA NITROGEN 27 mg/dL (7-20); CALCIUM 9.3 mg/dL (8.4-10.2); CARBON DIOXIDE 38 mmol/L (22-30); CHLORIDE 92 mmol/L (98-107); GLUCOSE 219 mg/dL (75-110); POTASSIUM 3.2 mmol/L (3.6-5.0); SODIUM 141.8 mmol/L (137-145)
[2016-06-21] MEDS: INSULIN LISPRO 100 UNIT/ML 3 ML VIAL SUBCUT PRN ×3 (09:44→23:59)
[2016-06-21] MEDS: ENOXAPARIN SODIUM INJ 40 MG/0.4 ML DISP.SYRIN SUBCUT SCH (09:44)
[2016-06-21] MEDS: DOXAZOSIN MESYLATE 2 MG TABLET PO SCH (09:45)
[2016-06-21] MEDS: FUROSEMIDE INJ/PF 40 MG/4 ML SDV IV SCH ×2 (09:45→23:37)
[2016-06-21] MEDS: BACITRACIN ZINC OINTMENT 15 GM TP SCH (09:46)
[2016-06-21] MEDS: METFORMIN HCL 500 MG TABLET PO SCH (09:46)
[2016-06-21] MEDS: LANSOPRAZOLE 30 MG TAB.RAP.DR PO SCH (09:46)
[2016-06-21] MEDS: CETIRIZINE 10 MG TABLET PO SCH (09:46)
[2016-06-21] MEDS: GLIMEPIRIDE 4 MG TABLET PO SCH (09:46)
[2016-06-21] MEDS: POTASSIUM CHLORIDE 10 MEQ TABLET.SA PO SCH (09:46)
[2016-06-21] MEDS ORDERED: POTASSIUM CHLORIDE 10 MEQ TABLET.SA PO ONE (12:30)
[2016-06-21] MEDS: CLINDAMYCIN 600 MG/D5W RTU 50 ML IV SCH ×2 (14:17→23:50)
[2016-06-21] MEDS: PIPERACILLIN SODIUM/TAZOBACTAM 4.5 GM in NORMAL SALINE 100 ML IV SCH ×2 (16:31→21:36)
--- NOTE | 2016-06-21 21:38 | PDOC PROGRESS REPORT ---
Subjective Progress Note for:: 06/21/16 Subjective:: Surgery will be consulted to assess leg wound. Patient reports leg wound in general has improved, but again notes that leg becomes much more swollen and red when he sits the bedside for an extended amount of time, and improves with elevation. He reports he has been better about elevating his leg over the level of the heart over the last 2 days, and the nurse confirms this. Physical Exam Vital Signs: Temp Pulse Resp BP Pulse Ox 98.2 F 74 16 103/68 93 06/21/16 20:05 06/21/16 20:10 06/21/16 20:10 06/21/16 20:05 06/21/16 20:05 Intake & Output 06/20/16 06/21/16 06/22/16 06:59 06:59 06:59 Intake Total 1606 1100 1170 Output Total 2300 1503 900 Balance -694 -403 270 Weight 113.1 kg 113.1 kg General appearance: PRESENT: no acute distress Head exam: PRESENT: normocephalic Extremities exam: PRESENT: other - Leg is improved compared to when I last examined him. When the patient is transitioned from a sitting position to a beach chair position in the bed, the leg and foot demonstrate decreased erythema and edema within 5 minutes. The leg has less induration, swelling and erythema relative to last visit. The dry eschar over what was a blister is sloughing and is trimmed away with a scissors and forceps. The wound on the first great toe has some fibrinous exudate which is removed with saline and gauze. The wounds are dressed with bacitracin, 4 x 4's, Kerlix rolls. Patient is directed to elevate the leg over the level of heart and then nursing will attempt to place a GILBERTO hose. If unable to fit a GILBERTO hose, they will wrap the leg with Coban while elevated to decrease swelling once the leg was lowered. Neurological exam: PRESENT: alert, oriented to situation Psychiatric exam: PRESENT: other - Gruff demeanor, often highly critical of all healthcare providers. Skin exam: PRESENT: erythema Results Laboratory Results: 06/21/16 03:50 06/21/16 03:50 06/21/16 06/21/16 06/21/16 03:50 03:50 03:50 WBC 9.9 RBC 4.92 Hgb 13.3 L Hct 40.6 MCV 83 MCH 26.9 L MCHC 32.6 RDW 15.9 H Plt Count 229 Seg Neutrophils % 67.0 Lymphocytes % 17.0 Monocytes % 11.1 Eosinophils % 3.5 Basophils % 1.4 Absolute Neutrophils 6.6 Absolute Lymphocytes 1.7 Absolute Monocytes 1.1 Absolute Eosinophils 0.3 Absolute Basophils 0.1 Sodium 141.8 Potassium 3.2 L Chloride 92 L Carbon Dioxide 38 H Anion Gap 12 BUN 27 H Creatinine 1.40 H 1.40 H Est GFR ( Amer) > 60 > 60 Est GFR (Non-Af Amer) 50 L 50 L Glucose 219 H Calcium 9.3 Magnesium 06/21/16 03:50 WBC RBC Hgb Hct MCV MCH MCHC RDW Plt Count Seg Neutrophils % Lymphocytes % Monocytes % Eosinophils % Basophils % Absolute Neutrophils Absolute Lymphocytes Absolute Monocytes Absolute Eosinophils Absolute Basophils Sodium Potassium Chloride Carbon Dioxide Anion Gap BUN Creatinine Est GFR ( Amer) Est GFR (Non-Af Amer) Glucose Calcium Magnesium 1.8 06/18/16 05:56 NT-Pro-B Natriuret Pep 228 Impressions: Chest X-Ray 06/21/16 00:00 IMPRESSION: New bibasilar opacities. Underlying COPD. Assessment & Plan - Diagnosis (1) Ulcer of right looney limited to breakdown of skin Is this a current diagnosis for this admission?: Yes (2) COPD (chronic obstructive pulmonary disease) Is this a current diagnosis for this admission?: Yes (3) Cellulitis of right lower extremity Is this a current diagnosis for this admission?: YesPlan: Leg has improved. Little to no induration. Edema and erythema are highly dependent on leg positioning. I reiterated the need for elevation of the leg over the level of the head. Patient is asked to elevate the leg over the level of heart and then nursing will attempt to place a GILBERTO hose. If unable to fit a GILBERTO hose, they will wrap the leg with Coban while elevated to decrease swelling once the leg was lowered. (4) Fluid retention Is this a current diagnosis for this admission?: Yes
[2016-06-21] MEDS: ASPIRIN 81 MG TABLET, ENT COATED PO SCH (23:45)
[2016-06-21] MEDS: METOLAZONE 2.5 MG TABLET PO SCH (23:48)
[2016-06-21] MEDS: ATORVASTATIN CALCIUM 40 MG TABLET PO SCH (23:48)
[2016-06-21] MEDS: GLIMEPIRIDE 1 MG TABLET PO SCH (23:49)
[2016-06-22] MEDS: PIPERACILLIN SODIUM/TAZOBACTAM 4.5 GM in NORMAL SALINE 100 ML IV SCH ×4 (03:48→21:57)
[2016-06-22] MEDS: VANCOMYCIN HCL 1,250 MG in DEXTROSE 5%-WATER 250 ML IV SCH ×2 (05:14→16:04)
[2016-06-22] MEDS: CLINDAMYCIN 600 MG/D5W RTU 50 ML IV SCH (07:53)
[2016-06-22] MEDS: INSULIN LISPRO 100 UNIT/ML 3 ML VIAL SUBCUT PRN ×3 (07:54→18:32)
[2016-06-22] MEDS: GLIMEPIRIDE 4 MG TABLET PO SCH (08:08)
[2016-06-22] MEDS: ENOXAPARIN SODIUM INJ 40 MG/0.4 ML DISP.SYRIN SUBCUT SCH (08:08)
[2016-06-22 08:45] LABS: ABSOLUTE EOSINOPHILS # (AUTO) 0.4 10^3/uL (0.0-0.6); ABSOLUTE LYMPHOCYTES (AUTO) 1.7 10^3/uL (0.5-4.7); ABSOLUTE MONOCYTES (AUTO) 0.8 10^3/uL (0.1-1.4); BASOPHILS % (AUTO) 0.6 % (0-2); EOSINOPHILS % (AUTO) 4.3 % (0-6); HEMATOCRIT 43.2 % (37.9-51.0); HEMOGLOBIN 13.9 g/dL (13.5-17.0); HGB HCT DIFFERENCE -1.5; LYMPHOCYTES % (AUTO) 18.4 % (13-45); MEAN CORPUSCULAR HEMOGLOBIN 26.8 pg (27.0-33.4); MEAN CORPUSCULAR HGB CONC 32.1 g/dL (32.0-36.0); MEAN CORPUSCULAR VOLUME 83 fl (80-97); MONOCYTES % (AUTO) 9.2 % (3-13); RED BLOOD COUNT 5.17 10^6/uL (4.35-5.55); RED CELL DISTRIBUTION WIDTH 15.5 % (11.5-14.0); SEGMENTED NEUTROPHILS % (AUTO) 67.5 % (42-78)
[2016-06-22] MEDS: IPRATROPIUM/ALBUTEROL 0.5-2.5 MG/3 ML AMPUL NEB SCH ×4 (08:57→20:07)
[2016-06-22 09:14] LABS: ANION GAP 11 (5-19); BLOOD UREA NITROGEN 27 mg/dL (7-20); CALCIUM 8.8 mg/dL (8.4-10.2); CARBON DIOXIDE 39 mmol/L (22-30); CHLORIDE 88 mmol/L (98-107); GLUCOSE 244 mg/dL (75-110); POTASSIUM 3.1 mmol/L (3.6-5.0)
[2016-06-22] MEDS: FUROSEMIDE INJ/PF 40 MG/4 ML SDV IV SCH ×2 (09:24→22:00)
[2016-06-22] MEDS: BACITRACIN ZINC OINTMENT 15 GM TP SCH (09:25)
[2016-06-22] MEDS: POTASSIUM CHLORIDE 10 MEQ TABLET.SA PO SCH (09:25)
[2016-06-22] MEDS: METFORMIN HCL 500 MG TABLET PO SCH (09:25)
[2016-06-22] MEDS: DOXAZOSIN MESYLATE 2 MG TABLET PO SCH (09:25)
[2016-06-22] MEDS: CETIRIZINE 10 MG TABLET PO SCH (09:25)
[2016-06-22] MEDS: LANSOPRAZOLE 30 MG TAB.RAP.DR PO SCH (09:25)
--- NOTE | 2016-06-22 14:52 | PDOC PROGRESS REPORT ---
Subjective Subjective:: Patient was sitting at bedside when I entered room, but reports he was elevating his leg earlier. Thinks leg is better. Physical Exam Vital Signs: Temp Pulse Resp BP Pulse Ox 98.0 F 76 18 133/69 H 90 L 06/22/16 12:00 06/22/16 12:00 06/22/16 12:00 06/22/16 12:00 06/22/16 12:00 Intake & Output 06/21/16 06/22/16 06/23/16 06:59 06:59 06:59 Intake Total 1100 2665 Output Total 1503 2470 Balance -403 195 Weight 113.1 kg 113.1 kg General appearance: PRESENT: no acute distress, morbidly obese, other - Intermittently falling asleep and snoring and waking up. Eye exam: PRESENT: EOMI, other - Glasses Extremities exam: PRESENT: other - Bilateral lower extremity severe edema remains, but induration and erythema on the right leg have decreased significantly. No areas of fluctuance. A sore on the right first toe just beyond the nailbed has scant proteinaceous exudate which is wiped clean with gauze. Small amount of bacitracin is applied to both the toe wound and the site where previously there was a blister on the medial looney. Leg is wrapped in Kerlix rolls and then Coban. Right is placed into an elevation position. Neurological exam: PRESENT: alert, oriented to situation Psychiatric exam: PRESENT: appropriate affect, normal mood Results Laboratory Results: 06/22/16 08:20 06/22/16 08:20 06/22/16 06/22/16 08:20 08:20 WBC 9.0 RBC 5.17 Hgb 13.9 Hct 43.2 MCV 83 MCH 26.8 L MCHC 32.1 RDW 15.5 H Plt Count 234 Seg Neutrophils % 67.5 Lymphocytes % 18.4 Monocytes % 9.2 Eosinophils % 4.3 Basophils % 0.6 Absolute Neutrophils 6.0 Absolute Lymphocytes 1.7 Absolute Monocytes 0.8 Absolute Eosinophils 0.4 Absolute Basophils 0.0 Sodium 138.0 Potassium 3.1 L Chloride 88 L Carbon Dioxide 39 H Anion Gap 11 BUN 27 H Creatinine 1.30 H Est GFR ( Amer) > 60 Est GFR (Non-Af Amer) 55 L Glucose 244 H Calcium 8.8 06/17/16 13:37 Blood Blood Culture - Final NO GROWTH IN 5 DAYS 06/18/16 05:56 NT-Pro-B Natriuret Pep 228 Impressions: Chest X-Ray 06/21/16 00:00 IMPRESSION: New bibasilar opacities. Underlying COPD. Assessment & Plan - Diagnosis (1) Ulcer of right looney limited to breakdown of skin Is this a current diagnosis for this admission?: Yes (2) COPD (chronic obstructive pulmonary disease) Is this a current diagnosis for this admission?: Yes (3) Cellulitis of right lower extremity Is this a current diagnosis for this admission?: YesPlan: Legs very close to baseline, which is still severe edema. Again emphasized the need for leg elevation and compression wraps/hose. Surgery will sign off, reconsult as needed. (4) Fluid retention Is this a current diagnosis for this admission?: Yes
[2016-06-22] MEDS ORDERED: POTASSIUM CHLORIDE 10 MEQ TABLET.SA PO ONE (15:00)
--- NOTE | 2016-06-22 19:43 | PDOC PROGRESS REPORT ---
Subjective Progress Note for:: 06/21/16 Subjective:: Patient reports his leg wound is worsened and his redness and swelling are significant and increased. He is in the company of his children at this time.Patient denies chest pain, shortness of breath, abdominal pain, nausea, vomiting, fevers, chills, diarrhea, constipation, headache, new onset weakness. Physical Exam Vital Signs: Temp Pulse Resp BP Pulse Ox 97.8 F 75 20 120/57 L 93 06/20/16 23:38 06/20/16 23:38 06/20/16 23:38 06/20/16 23:38 06/20/16 23:38 Intake & Output 06/20/16 06/21/16 06/22/16 06:59 06:59 06:59 Intake Total 1606 1100 Output Total 2300 1503 Balance -694 -403 Weight 113.1 kg 113.1 kg Exam: General: Obese, chronically ill-appearing, Awake, alert, and oriented x3, no acute respiratory distress HEENT: AT/NC, PERRL, EOMI, oropharynx is moist, pink, no scleral icterus, no conjunctival injection Neck: No JVD Chest: Bibasilar crackles CV: Regular rate and rhythm, normal S1 and S2, no murmur, rub, or gallop Abdomen: Protuberant, Soft, nontender to palpation, nondistended, active bowel sounds Extremities: No cyanosis, clubbing; 3+ bilateral lower extremity pitting edema, significant erythema and edema of the right lower extremity Neuro: Cranial nerves II through XII are grossly intact without focal deficits; awake alert and oriented x3 Psych: Hostile Skin: Right lower extremity with dry eschar without purulence, first great toe with small area of exudate Results Laboratory Results: 06/20/16 05:55 06/21/16 03:50 06/20/16 06/21/16 11:03 03:50 Carbonic Acid 2.31 H HCO3/H2CO3 Ratio 15:1 ABG pH 7.28 L ABG pCO2 76.9 H* ABG pO2 81.4 ABG HCO3 35.2 H ABG O2 Saturation 94.1 ABG Base Excess 5.4 FiO2 3L Creatinine 1.40 H Est GFR ( Amer) > 60 Est GFR (Non-Af Amer) 50 L 06/18/16 05:56 NT-Pro-B Natriuret Pep 228 Impressions: Chest X-Ray 06/17/16 00:00 IMPRESSION: NO SIGNIFICANT RADIOGRAPHIC FINDING IN THE CHEST. Assessment & Plan - Diagnosis (1) Acute hypercapnic respiratory failure due to obstructive sleep apnea Is this a current diagnosis for this admission?: YesPlan: Patient required administration of BiPAP likely secondary to undiagnosed underlying obstructive sleep apnea. Recommend outpatient sleep study. Will place CPAP settings with orders to titrate for comfort. (2) Cellulitis of right lower extremity Is this a current diagnosis for this admission?: YesPlan: Continue Zosyn and vancomycin. (3) Diabetes mellitus type II, controlled Qualifiers: Diabetes mellitus complication status: with skin complications Diabetes mellitus complication detail: with other skin complication Diabetes mellitus retirement insulin use: without retirement use Qualified Code(s): E11.628 - Type 2 diabetes mellitus with other skin complications Is this a current diagnosis for this admission?: YesPlan: Continue sliding scale insulin. (4) Diabetic ulcer of right lower leg Is this a current diagnosis for this admission?: YesPlan: We'll consult surgery and add clindamycin as there is some streaking erythema. Encourage patient to be compliant with elevating legs above heart. (5) Morbid obesity with BMI of 40.0-44.9, adult Is this a current diagnosis for this admission?: Yes (6) COPD (chronic obstructive pulmonary disease) Qualifiers: COPD type: unspecified COPD Qualified Code(s): J44.9 - Chronic obstructive pulmonary disease, unspecified Is this a current diagnosis for this admission?: YesPlan: Breathing treatments as needed. - Time Time Spent with patient: 25-34 minutes Medications reviewed and adjusted accordingly: Yes
--- NOTE | 2016-06-22 19:47 | PDOC PROGRESS REPORT ---
Subjective Progress Note for:: 06/22/16 Subjective:: Patient is quite sleepy when I visited him and continues to follow asleep during our examination. At this time, he declines to put on his BiPAP. Physical Exam Vital Signs: Temp Pulse Resp BP Pulse Ox 97.2 F 73 18 133/52 H 91 L 06/22/16 00:00 06/22/16 00:00 06/22/16 00:00 06/22/16 00:00 06/22/16 00:00 Intake & Output 06/21/16 06/22/16 06/23/16 06:59 06:59 06:59 Intake Total 1100 2665 Output Total 1503 2470 Balance -403 195 Weight 113.1 kg 113.1 kg Exam: General: Obese, chronically ill-appearing, lethargic, no acute respiratory distress HEENT: AT/NC, PERRL, EOMI, oropharynx is moist, pink, no scleral icterus, no conjunctival injection Neck: No JVD Chest: Bibasilar crackles CV: Regular rate and rhythm, normal S1 and S2, no murmur, rub, or gallop Abdomen: Protuberant, Soft, nontender to palpation, nondistended, active bowel sounds Extremities: No cyanosis, clubbing; 3+ bilateral lower extremity pitting edema, significant erythema and edema of the right lower extremity Neuro: Cranial nerves II through XII are grossly intact without focal deficits Psych: Hostile Skin: Right lower extremity with dry eschar without purulence, first great toe with small area of exudate Results Laboratory Results: 06/21/16 03:50 06/21/16 03:50 06/21/16 06/21/16 06/21/16 03:50 03:50 03:50 WBC 9.9 RBC 4.92 Hgb 13.3 L Hct 40.6 MCV 83 MCH 26.9 L MCHC 32.6 RDW 15.9 H Plt Count 229 Seg Neutrophils % 67.0 Lymphocytes % 17.0 Monocytes % 11.1 Eosinophils % 3.5 Basophils % 1.4 Absolute Neutrophils 6.6 Absolute Lymphocytes 1.7 Absolute Monocytes 1.1 Absolute Eosinophils 0.3 Absolute Basophils 0.1 Sodium 141.8 Potassium 3.2 L Chloride 92 L Carbon Dioxide 38 H Anion Gap 12 BUN 27 H Creatinine 1.40 H Est GFR ( Amer) > 60 Est GFR (Non-Af Amer) 50 L Glucose 219 H Calcium 9.3 Magnesium 1.8 06/18/16 05:56 NT-Pro-B Natriuret Pep 228 Impressions: Chest X-Ray 06/21/16 00:00 IMPRESSION: New bibasilar opacities. Underlying COPD. Assessment & Plan - Diagnosis (1) Acute hypercapnic respiratory failure due to obstructive sleep apnea Is this a current diagnosis for this admission?: YesPlan: Continue to encourage patient to utilize his BiPAP. Will place patient back on BiPAP as he did not seem to tolerate CPAP as well. (2) COPD (chronic obstructive pulmonary disease) Qualifiers: COPD type: unspecified COPD Qualified Code(s): J44.9 - Chronic obstructive pulmonary disease, unspecified Is this a current diagnosis for this admission?: YesPlan: Breathing treatments as needed. (3) Cellulitis of right lower extremity Is this a current diagnosis for this admission?: YesPlan: Continue Zosyn and vancomycin. (4) Diabetes mellitus type II, controlled Qualifiers: Diabetes mellitus complication status: with skin complications Diabetes mellitus complication detail: with other skin complication Diabetes mellitus intermediate manager insulin use: without intermediate manager use Qualified Code(s): E11.628 - Type 2 diabetes mellitus with other skin complications Is this a current diagnosis for this admission?: YesPlan: Continue sliding scale insulin. (5) Medical non-compliance Is this a current diagnosis for this admission?: YesPlan: At this time, it appears as though patient's edema and erythema are secondary to his unwillingness to rest with his legs elevated above his heart. I am unable to motivate patient to participate in his therapy. (6) Morbid obesity with BMI of 40.0-44.9, adult Is this a current diagnosis for this admission?: Yes - Time Time Spent with patient: 15-24 minutes Medications reviewed and adjusted accordingly: Yes
[2016-06-22] MEDS: ASPIRIN 81 MG TABLET, ENT COATED PO SCH (23:25)
[2016-06-22] MEDS: ATORVASTATIN CALCIUM 40 MG TABLET PO SCH (23:25)
[2016-06-22] MEDS: METOLAZONE 2.5 MG TABLET PO SCH (23:25)
[2016-06-22] MEDS: GLIMEPIRIDE 1 MG TABLET PO SCH (23:25)
[2016-06-23] MEDS: PIPERACILLIN SODIUM/TAZOBACTAM 4.5 GM in NORMAL SALINE 100 ML IV SCH (03:34)
[2016-06-23] MEDS: VANCOMYCIN HCL 1,250 MG in DEXTROSE 5%-WATER 250 ML IV SCH (04:54)
[2016-06-23 07:48] LABS: PROTHROMBIN TIME 14.2 SEC (11.4-15.4)
[2016-06-23 07:49] LABS: PARTIAL THROMBOPLASTIN TIME 30.1 SEC (23.5-35.8)
--- NOTE | 2016-06-23 08:08 | PDOC PROGRESS REPORT ---
Subjective Progress Note for:: 06/23/16 Subjective:: The patient states to feel much better. He is upset about not having a PICC line or a Port-A-Cath because some bloods have to be controlled. He does have a sleep study in the distant past but have not had a see Pap at home. Discussed that we will need to have a blood gas and possibly a sleep study as an outpatient in order to be able to obtain a see Pap. He is still noncompliant with trying to keep his legs elevated. His wound is looking much better. Physical Exam Vital Signs: Temp Pulse Resp BP Pulse Ox 98.2 F 82 17 138/54 H 96 06/23/16 00:13 06/23/16 00:13 06/23/16 00:13 06/23/16 00:13 06/23/16 00:13 Intake & Output 06/22/16 06/23/16 06/24/16 06:59 06:59 06:59 Intake Total 2665 1720 Output Total 2470 900 Balance 195 820 Weight 113.1 kg General appearance: PRESENT: no acute distress Head exam: PRESENT: atraumatic Eye exam: PRESENT: conjunctiva pink Cardiovascular exam: PRESENT: RRR, +S1, +S2 Pulses: PRESENT: +1 pedal pulses bilateral GI/Abdominal exam: PRESENT: normal bowel sounds, soft Extremities exam: PRESENT: pedal edema, other Musculoskeletal exam: PRESENT: ambulatory Neurological exam: PRESENT: alert Skin exam: PRESENT: vesicles, warm Results Laboratory Results: 06/22/16 08:20 06/22/16 08:20 06/22/16 06/22/16 06/22/16 08:20 08:20 08:20 WBC 9.0 RBC 5.17 Hgb 13.9 Hct 43.2 MCV 83 MCH 26.8 L MCHC 32.1 RDW 15.5 H Plt Count 234 Seg Neutrophils % 67.5 Lymphocytes % 18.4 Monocytes % 9.2 Eosinophils % 4.3 Basophils % 0.6 Absolute Neutrophils 6.0 Absolute Lymphocytes 1.7 Absolute Monocytes 0.8 Absolute Eosinophils 0.4 Absolute Basophils 0.0 Sodium 138.0 Potassium 3.1 L Chloride 88 L Carbon Dioxide 39 H Anion Gap 11 BUN 27 H Creatinine 1.30 H Est GFR ( Amer) > 60 Est GFR (Non-Af Amer) 55 L Glucose 244 H Calcium 8.8 Magnesium 1.7 01/31/17 16:15 Blood Blood Culture - Final NO GROWTH IN 5 DAYS 06/17/16 13:37 Blood Blood Culture - Final NO GROWTH IN 5 DAYS 06/18/16 05:56 NT-Pro-B Natriuret Pep 228 Impressions: Chest X-Ray 06/21/16 00:00 IMPRESSION: New bibasilar opacities. Underlying COPD. Assessment & Plan - Diagnosis (1) Diabetic ulcer of right lower leg Is this a current diagnosis for this admission?: YesPlan: Improving with IV antibiotics and elevation even though the patient is not compliant (2) Cellulitis of right lower extremity Is this a current diagnosis for this admission?: YesPlan: Improving with antibiotics and elevation even though the patient is not compliant. The surgeons have signed off. We will continue with local treatments and consider wound care as an outpatient if patient agrees (3) COPD (chronic obstructive pulmonary disease) Qualifiers: COPD type: unspecified COPD Qualified Code(s): J44.9 - Chronic obstructive pulmonary disease, unspecified Is this a current diagnosis for this admission?: YesPlan: Improving with the BiPAP. We'll obtain a sleep study as an outpatient and consider see Pap We will encourage patient to stop smoking (4) Fluid retention Is this a current diagnosis for this admission?: Yes (5) Fluid retention in legs Qualifiers: Laterality: bilateral Qualified Code(s): R60.0 - Localized edema Is this a current diagnosis for this admission?: Yes (6) Diabetes mellitus type II, controlled Qualifiers: Diabetes mellitus complication status: with skin complications Diabetes mellitus complication detail: with other skin complication Diabetes mellitus senior care insulin use: without manager terminal use Qualified Code(s): E11.628 - Type 2 diabetes mellitus with other skin complications Is this a current diagnosis for this admission?: YesPlan: Controlled with medications and diet
[2016-06-23] MEDS: IPRATROPIUM/ALBUTEROL 0.5-2.5 MG/3 ML AMPUL NEB SCH ×4 (08:25→19:43)
[2016-06-23] MEDS: GLIMEPIRIDE 4 MG TABLET PO SCH (09:09)
[2016-06-23] MEDS: INSULIN LISPRO 100 UNIT/ML 3 ML VIAL SUBCUT PRN ×4 (09:12→21:26)
[2016-06-23] MEDS: ENOXAPARIN SODIUM INJ 40 MG/0.4 ML DISP.SYRIN SUBCUT SCH (09:12)
[2016-06-23] MEDS: BACITRACIN ZINC OINTMENT 15 GM TP SCH (12:50)
[2016-06-23] MEDS: FUROSEMIDE 40 MG TABLET PO SCH ×2 (12:51→17:31)
[2016-06-23] MEDS: DOXAZOSIN MESYLATE 2 MG TABLET PO SCH (12:54)
[2016-06-23] MEDS: CETIRIZINE 10 MG TABLET PO SCH (12:54)
[2016-06-23] MEDS: POTASSIUM CHLORIDE 10 MEQ TABLET.SA PO SCH (12:55)
[2016-06-23] MEDS: LANSOPRAZOLE 30 MG TAB.RAP.DR PO SCH (12:55)
[2016-06-23] MEDS: METFORMIN HCL 500 MG TABLET PO SCH (12:55)
[2016-06-23] MEDS: CLINDAMYCIN HCL 150 MG CAPSULE PO SCH ×2 (12:58→17:31)
[2016-06-23 15:24] LABS: ARTERIAL BLOOD BASE EXCESS 12.3 mmol/L; ARTERIAL BLOOD O2 SATURATION 89.5 % (94-98)
[2016-06-23] MEDS: GLIMEPIRIDE 1 MG TABLET PO SCH (21:27)
[2016-06-23] MEDS: ASPIRIN 81 MG TABLET, ENT COATED PO SCH (21:28)
[2016-06-23] MEDS: ATORVASTATIN CALCIUM 40 MG TABLET PO SCH (21:29)
[2016-06-23] MEDS: METOLAZONE 2.5 MG TABLET PO SCH ×2 (21:34→22:55)
[2016-06-24] MEDS: CLINDAMYCIN HCL 150 MG CAPSULE PO SCH ×2 (00:55→06:22)
[2016-06-24] MEDS: IPRATROPIUM/ALBUTEROL 0.5-2.5 MG/3 ML AMPUL NEB SCH (07:56)
--- NOTE | 2016-06-24 08:22 | PDOC DISCHARGE SUMMARY ---
General - Admit/Disc Date/PCP Admission Date/Primary Care Provider: 06/17/16 10:58 NEO WADDELL, Discharge Date: 06/24/16 - Discharge Diagnosis (1) Diabetic ulcer of right lower leg Is this a current diagnosis for this admission?: Yes (2) Cellulitis of right lower extremity Is this a current diagnosis for this admission?: Yes (3) COPD (chronic obstructive pulmonary disease) Is this a current diagnosis for this admission?: Yes (4) Fluid retention Is this a current diagnosis for this admission?: Yes (5) Fluid retention in legs Is this a current diagnosis for this admission?: Yes (6) Diabetes mellitus type II, controlled Is this a current diagnosis for this admission?: Yes - Additional Information Resuscitation Status: Full Code Discharge Diet: As Tolerated Discharge Activity: Activity As Tolerated Home Medications: Albuterol Sulfate [Ventolin Hfa] 1 puff IH PRN PRN 06/17/16 Aspirin [Aspirin EC] 81 mg PO QHS 06/17/16 Atorvastatin Calcium [Lipitor 40 mg Tablet] 20 mg PO DAILY 06/17/16 Cetirizine HCl [Zyrtec 10 mg Tablet] 20 mg PO DAILY 06/17/16 Doxazosin Mesylate [Cardura 2 mg Tablet] 2 mg PO DAILY 06/17/16 Furosemide [Lasix 40 mg Tablet] 40 mg PO DAILY 06/17/16 Glimepiride [Amaryl] 2 mg PO QHS 06/17/16 Glimepiride [Amaryl] 4 mg PO QAM 06/17/16 Metformin HCl [Glucophage] 500 mg PO DAILY 06/17/16 Metolazone [Zaroxolyn 2.5 mg Tablet] 2.5 mg PO QHS 06/17/16 Omeprazole 40 mg PO DAILY 06/17/16 Potassium Chloride [K-Tab ER] 40 meq PO DAILY 06/17/16 Clindamycin HCl [Cleocin 150 mg Capsule] 150 mg PO Q6 #30 capsule 06/24/16 History of Present Illness History of Present Illness: Ned KEYSSIRISHA LEWIS is a 70 year old male Hospital Course Hospital Course: The patient was admitted directly from the office because of cellulitis in a diabetic foot. She was started on IV antibiotics. He was placed at bed rest with leg elevation. The patient is very noncompliant and would not keep his legs up. After several days of diuretics and down IV antibiotics his symptomatology has improved. He was seen by the surgery with debridement of the wound. After several days of hospitalization the patient has developed a hypercapnic episode and needed to be placed on the BiPAP. His PCO2 was 74. He tolerated BiPAP well. The patient apparently was scheduled to have right new sleep study. It has been arranged as an outpatient. His last ABG was he O2 of 59 and PCO2 of 55 he did quite well his hypercapnic lethargy has resolved. His IV antibiotics have been switched to by mouth on a daily of discharge she appeared comfortable in no acute distress vital signs stable Physical Exam Vital Signs: Temp Pulse Resp BP Pulse Ox 98.0 F 78 16 129/65 H 90 L 06/23/16 23:02 06/24/16 07:55 06/24/16 07:55 06/23/16 23:02 06/24/16 07:55 Intake & Output 06/23/16 06/24/16 06/25/16 06:59 06:59 06:59 Intake Total 1720 553 Output Total 900 Balance 820 553 Weight 113.9 kg General appearance: PRESENT: no acute distress Head exam: PRESENT: atraumatic Eye exam: PRESENT: conjunctiva pink Neck exam: ABSENT: carotid bruit, JVD Respiratory exam: PRESENT: rhonchi Cardiovascular exam: PRESENT: RRR, +S1, +S2 Pulses: PRESENT: normal carotid pulses GI/Abdominal exam: PRESENT: soft Extremities exam: PRESENT: full ROM, pedal edema Musculoskeletal exam: PRESENT: ambulatory Skin exam: PRESENT: abrasion, erythema Results Laboratory Results: 06/22/16 08:20 06/22/16 08:20 06/23/16 06/23/16 07:04 15:05 Carbonic Acid 1.70 H HCO3/H2CO3 Ratio 22:1 ABG pH 7.45 ABG pCO2 56.6 H ABG pO2 55.3 L ABG HCO3 38.7 H ABG O2 Saturation 89.5 L ABG Base Excess 12.3 FiO2 21% Prealbumin 19.8 06/18/16 05:56 NT-Pro-B Natriuret Pep 228 Impressions: Chest X-Ray 06/21/16 00:00 IMPRESSION: New bibasilar opacities. Underlying COPD. Plan Discharge Plan: 1. Continue antibiotics to continue diuretics. Keep the leg elevation. 4 we will consider wound care clinic 5 we will obtain sleep study as an outpatient and possibly consider a see Pap versus BiPAP 7 stop smoking and continue nebulization treatments.
[2016-06-24 10:28] VITALS: BP 125/59
[2016-06-24] MEDS: DOXAZOSIN MESYLATE 2 MG TABLET PO SCH (10:35)
[2016-06-24] MEDS: POTASSIUM CHLORIDE 10 MEQ TABLET.SA PO SCH (10:35)
[2016-06-24] MEDS: CETIRIZINE 10 MG TABLET PO SCH (10:35)
[2016-06-24] MEDS: METFORMIN HCL 500 MG TABLET PO SCH (10:35)
[2016-06-24] MEDS: LANSOPRAZOLE 30 MG TAB.RAP.DR PO SCH (10:36)
[2016-06-24] MEDS: FUROSEMIDE 40 MG TABLET PO SCH (10:36)
[2016-06-24] MEDS: GLIMEPIRIDE 4 MG TABLET PO SCH (10:36)
[2016-06-24] MEDS: ENOXAPARIN SODIUM INJ 40 MG/0.4 ML DISP.SYRIN SUBCUT SCH (10:37)
== END 2016-06-24 11:01 | disposition home or self-care (01) | DRG 637 ==
LOC: 4W 10:58 → 4N 06-18 15:59
PROVIDERS: ADMIT Internal Medicine; ATTEND Internal Medicine
PROC: 5A09457 Assistance with Respiratory Ventilation, 24-96 Consecutive Hours, Continuous Positive Airway Pressure (ICD-10-PCS; 2016-06-20)
PROC: 0HDLXZZ Extraction of Left Lower Leg Skin, External Approach (ICD-10-PCS; principal; 2016-06-21)
DX: E11.622 Type 2 diabetes mellitus with other skin ulcer (principal); J96.02 Acute respiratory failure with hypercapnia; L97.811 Non-pressure chronic ulcer of other part of right lower leg limited to breakdown of skin; L03.113 Cellulitis of right upper limb; Z68.41 Body mass index [BMI] 40.0-44.9, adult; E11.621 Type 2 diabetes mellitus with foot ulcer; L97.519 Non-pressure chronic ulcer of other part of right foot with unspecified severity; J44.9 Chronic obstructive pulmonary disease, unspecified; G47.33 Obstructive sleep apnea (adult) (pediatric); E66.01 Morbid (severe) obesity due to excess calories; Z96.652 Presence of left artificial knee joint; I25.10 Atherosclerotic heart disease of native coronary artery without angina pectoris; Z95.5 Presence of coronary angioplasty implant and graft; E78.5 Hyperlipidemia, unspecified; M19.90 Unspecified osteoarthritis, unspecified site; F17.290 Nicotine dependence, other tobacco product, uncomplicated; Z88.0 Allergy status to penicillin; Z91.19 Patient's noncompliance with other medical treatment and regimen; Z79.82 Long term (current) use of aspirin; Z79.84 Long term (current) use of oral hypoglycemic drugs
CPT/HCPCS: 36415; 36600; 71020; 80048; 80053; 80170; 80202; 82565; 82803; 82962; 83735; 83880; 84134; 84443; 85025; 85610; 85730; 87040; 93970; 94660; 94799; J1580; J1650; J1815; J1940; J2543; J3370; J3490; J7030; J7060; J7620

== ENCOUNTER → 2016-07-26 | Outpatient (CLI) | payer MEDICARE, OTHER ==
[2016-07-26 12:52] LABS: ANION GAP 11 (5-19); BLOOD UREA NITROGEN 28 mg/dL (7-20); CALCIUM 9.7 mg/dL (8.4-10.2); CARBON DIOXIDE 36 mmol/L (22-30); CHLORIDE 92 mmol/L (98-107); GLUCOSE 305 mg/dL (75-110); MAGNESIUM 1.6 mg/dL (1.6-2.3); POTASSIUM 3.8 mmol/L (3.6-5.0); SODIUM 138.6 mmol/L (137-145)
== END ==
LOC: LAB 12:06
PROVIDERS: ATTEND Internal Medicine
DX: I12.9 Hypertensive chronic kidney disease with stage 1 through stage 4 chronic kidney disease, or unspecified chronic kidney disease (principal); N18.9 Chronic kidney disease, unspecified; E11.9 Type 2 diabetes mellitus without complications
CPT/HCPCS: 36415; 80048; 83735

== ENCOUNTER → 2016-08-20 | Outpatient (CLI) | payer MEDICARE, OTHER ==
--- NOTE | 2016-08-20 12:48 | XCELERA REPORT ---
[address] [address] Lower Extremity Arterial Evaluation Name: SUHA ODOM JR Age: 70 yrs Gender: Male : 1945 Patient Status: Outpatient Patient Location: Study Date: 08/20/2016 09:13 AM Procedure: A color flow and duplex scan of the lower extremity arteries was performed bilaterally with velocity and waveform anaylsis. Ankle brachial indicies performed. 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 Biphasic in the infrageniculate vessels. With well preserved velocity, moderate spectral broadening, barely biphasic. 20-49 % stenosis at the Femoral artery. Ankle Brachial index is 1.01. Left Side Arterial Evaluation Normal velocity and triphasic waveforms noted from the Common Femoral artery to the Femoral. Biphasic in the infrageniculate vessels. With well preserved velocity, moderate spectral broadening, barely biphasic. 20-49 % stenosis at the Femoral artery. Ankle Brachial index is 1.04. Interpretation Summary Moderate hemodynamically significant lesions in the bilateral lower extremities, on duplex imaging, at rest. : KAYLIE WEBER > Kaushik Sotelo
--- NOTE | 2016-08-21 11:57 | XCELERA REPORT ---
[address] [address] Lower Extremity Venous Evaluation Name: SUHA ODOM JR Age: 70 yrs Gender: Male : 1945 Patient Status: Outpatient Patient Location: Study Date: 08/20/2016 09:37 AM Procedure: A bilateral duplex scan of the lower extremity veins was performed. The evaluation included responses to compression and other maneuvers with patient in the supine and standing positions to assess venous insufficiency. Reason For Study: ULCER Ordering Physician: KAYLIE WEBER Performed By: Kirill Phipps Right Sided Venous Evaluation Deep venous system evaluatiion shows patent veins with no obstruction or significant reflux identified. Sapheno Femoral junction: no reflux. Femoral vein reflux: none identified Greater Saphenous reflux: none identified. Short Saphenous reflux: none identified. No significant Perforators identified. Left Sided Venous Evaluation Deep venous system evaluatiion shows patent veins with no obstruction or significant reflux identified. Sapheno Femoral junction: no reflux. Femoral vein reflux: none identified Greater Saphenous reflux: none identified. Short Saphenous reflux: none identified. No significant Perforators identified. Interpretation Summary No duplex evidence of DVT or obstruction in the bilateral lower extremities. No deep or superficial reflux identified. : KAYLIE WEBER > Kaushik Sotelo
== END ==
LOC: SP 08:58
PROVIDERS: ATTEND Nurse Practitioner Family
DX: L97.212 Non-pressure chronic ulcer of right calf with fat layer exposed (principal)
CPT/HCPCS: 93925; 93970

== ENCOUNTER 2016-09-11 09:08 | Day surgery (SDC) | payer MEDICARE, OTHER ==
[~2016-09-11 09:08] MED LIST: KETOROLAC TROMETHAMINE 0.45% 4 DROP/0.4 ML DROPERETTE OS PRN
[2016-09-11] MEDS: TETRACAINE HCL 0.5% OPH SOLN 2 ML OS PRN ×3 (09:45→10:38)
[2016-09-11] MEDS: TROPICAMIDE 1% OPH SOLN 3 ML OS PRN ×3 (09:46→10:20)
[2016-09-11] MEDS: CYCLOPENTOLATE 0.2%/PHENYLEPHRINE 1% OPH SOLN 2 ML OS PRN ×3 (09:46→10:20)
[2016-09-11] MEDS: BESIFLOXACIN HCL 0.6% OPH SUSP 5 ML BOTTLE OS PRN ×4 (09:46→11:17)
[2016-09-11] MEDS ORDERED: FENTANYL CITRATE INJ/PF 100 MCG/2 ML AMPUL ONE (10:10)
[2016-09-11] MEDS ORDERED: MIDAZOLAM 2 MG/2 ML INJ ONE (10:10)
[2016-09-11] MEDS ORDERED: ALBUTEROL SULFATE 0.083% NEB 2.5 MG/3 ML AMPUL NEB ONE (10:12)
[2016-09-11] MEDS: PHENYLEPHRINE/KETOROLAC 1%-0.3% 4 ML VIAL ONE ×2 (10:52)
[2016-09-11] MEDS: CHONDR SU A NA/HYALUR INTRAOC KIT (SURGICARE) ONE ×2 (10:52)
[2016-09-11] MEDS: LIDOCAINE 1% INJ-PF (10 MG/ML) 30 ML SDV ONE ×2 (10:54)
--- NOTE | 2016-10-03 14:30 | [facility] OPERATIVE REPORT E ---
[facility] Operative Report NAME: SUHA ODOM AGE: 70Y DATE OF SURGERY: 09/11/2016 ROOM: PREOPERATIVE DIAGNOSES: 1. Cataract, left eye. 2. Pupil miosis of the left eye. POSTOPERATIVE DIAGNOSES: 1. Cataract, left eye. 2. Pupil miosis of the left eye. OPERATION: Complex cataract extraction with use of a Malyugin ring due to pupil miosis. SURGEON: SHARIF GAVIN M.D. ANESTHESIA: Topical. PROCEDURE: After obtaining appropriate consent, the patient's left eye was prepped and draped in sterile fashion as well as the surgeon in a sterile manner and cataract surgery was started. First a paracentesis blade was used to make a small side-port incision. Viscoelastic was used to inflate the anterior chamber. Next a 2.4 mm incision was made with the paracentesis blade. A continuous capsulorrhexis incision was made using a cystotome and Utrata forceps. Following this hydrodissection was carried out to make the lens fully loose and mobile and it was rotated 90 degrees. Following this, a fchowb-niw-cgioddu technique was used to phacoemulsify the lens with a CDE of 12.87. The remaining cortex was removed with irrigation/aspiration. Provisc was instilled into the capsular bag to inflate the bag. A SN60WF, 24.0 diopter lens was placed. The remaining viscoelastic material was removed with irrigation/aspiration. Following this, a 10-0 nylon suture was used to close the incision and it was found to be watertight. Vigamox was instilled in the eye and a protective shield was placed over the eye. The patient returned to the postoperative recovery in stable condition. Prior to making the capsulorrhexis, a Malyugin ring was inserted due to a miotic pupil. This was removed at the end of the case. DICTATING PHYSICIAN: SHARIF GAVIN M.D. 1211M 1406 PHY#: [id number] ID: [id number] JOB#: [id number] ACCT: [id number] cc:SHARIF GAVIN M.D. >
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
== END 2016-09-11 12:15 | disposition home or self-care (01) ==
LOC: SC 09:08
PROVIDERS: ATTEND Internal Medicine
PROC: 08RK3JZ Replacement of Left Lens with Synthetic Substitute, Percutaneous Approach (ICD-10-PCS; principal; 2016-09-11 10:30)
DX: H25.13 Age-related nuclear cataract, bilateral (principal); H57.03 Miosis; H40.033 Anatomical narrow angle, bilateral; E11.9 Type 2 diabetes mellitus without complications; J44.9 Chronic obstructive pulmonary disease, unspecified; K21.9 Gastro-esophageal reflux disease without esophagitis; F17.210 Nicotine dependence, cigarettes, uncomplicated; I51.9 Heart disease, unspecified; Z86.73 Personal history of transient ischemic attack (TIA), and cerebral infarction without residual deficits; Z88.0 Allergy status to penicillin; Z79.82 Long term (current) use of aspirin; Z79.899 Other long term (current) drug therapy; Z79.84 Long term (current) use of oral hypoglycemic drugs; Z79.51 Long term (current) use of inhaled steroids; Z98.61 Coronary angioplasty status
CPT/HCPCS: 66982; 82962; V2632; J2250; J3490 ×2; A9270 ×2; C9447; 142; J3010

== ENCOUNTER 2016-10-02 10:55 | Day surgery (SDC) | payer MEDICARE, OTHER ==
[~2016-10-02 10:55] MED LIST changes: +CHONDR SU A NA/HYALUR INTRAOC KIT (SURGICARE) ONE; +KETOROLAC TROMETHAMINE 0.45% 4 DROP/0.4 ML DROPERETTE OD PRN; -KETOROLAC TROMETHAMINE 0.45% 4 DROP/0.4 ML DROPERETTE OS PRN; +LIDOCAINE 1% INJ-PF (10 MG/ML) 30 ML SDV ONE; +MIDAZOLAM 2 MG/2 ML INJ ONE; +PHENYLEPHRINE/KETOROLAC 1%-0.3% 4 ML VIAL ONE
[2016-10-02] MEDS: TETRACAINE HCL 0.5% OPH SOLN 2 ML OD PRN ×3 (11:17→12:15)
[2016-10-02] MEDS: CYCLOPENTOLATE 0.2%/PHENYLEPHRINE 1% OPH SOLN 2 ML OD PRN ×3 (11:18→11:33)
[2016-10-02] MEDS: BESIFLOXACIN HCL 0.6% OPH SUSP 5 ML BOTTLE OD PRN ×4 (11:18→12:37)
[2016-10-02] MEDS: TROPICAMIDE 1% OPH SOLN 3 ML OD PRN ×3 (11:18→11:34)
--- NOTE | 2016-10-02 20:25 | [facility] OPERATIVE REPORT E ---
[facility] Operative Report NAME: SUHA ODOM AGE: 70Y DATE OF SURGERY: 10/02/2016 ROOM: PREOPERATIVE DIAGNOSES: 1. Cataract, right eye. 2. Pupils miosis of the right eye. POSTOPERATIVE DIAGNOSES: 1. Cataract, right eye. 2. Pupils miosis of the right eye. PROCEDURE: Complex cataract extraction with use of a Malyugin ring due to a very miotic pupil. SURGEON: SHARIF GAVIN M.D. ANESTHESIA: Topical. PROCEDURE: After obtaining appropriate consent, the patient's right eye was prepped and draped in sterile fashion as well as the surgeon in a sterile manner and cataract surgery was started. First a paracentesis blade was used to make a small side-port incision. Viscoelastic was used to inflate the anterior chamber. Next a 2.4 mm incision was made with the paracentesis blade. A continuous capsulorrhexis incision was made using a cystotome and Utrata forceps. Following this hydrodissection was carried out to make the lens fully loose and mobile and it was rotated 90 degrees. Following this, a laxmbd-qjw-nzghfqp technique was used to phacoemulsify the lens with a CDE of 12.67. The remaining cortex was removed with irrigation/aspiration. Provisc was instilled into the capsular bag to inflate the bag. A SN60WF, 23.0 diopter lens was placed. The remaining viscoelastic material was removed with irrigation/aspiration. Following this, a 10-0 nylon suture was used to close the incision and it was found to be watertight. Vigamox was instilled in the eye and a protective shield was placed over the eye. The patient returned to the postoperative recovery in stable condition. Prior to making the capsulorrhexis, a Malyugin ring was inserted due to pupil miosis. This was removed at the end of the case. DICTATING PHYSICIAN: SHARIF GAVIN M.D. 1211M 2014 PHY#: [id number] 2011 ID: [id number] JOB#: [id number] ACCT: [id number] cc:SHARIF GAVIN M.D. >
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
== END 2016-10-02 13:33 | disposition home or self-care (01) ==
LOC: SC 10:55
PROVIDERS: ATTEND Internal Medicine
PROC: 08RJ3JZ Replacement of Right Lens with Synthetic Substitute, Percutaneous Approach (ICD-10-PCS; principal; 2016-10-02 12:00)
DX: H25.11 Age-related nuclear cataract, right eye (principal); H57.03 Miosis; Z96.1 Presence of intraocular lens; J44.9 Chronic obstructive pulmonary disease, unspecified; E11.9 Type 2 diabetes mellitus without complications; K21.9 Gastro-esophageal reflux disease without esophagitis; F17.210 Nicotine dependence, cigarettes, uncomplicated; I10 Essential (primary) hypertension; Z79.82 Long term (current) use of aspirin; Z88.0 Allergy status to penicillin; Z86.73 Personal history of transient ischemic attack (TIA), and cerebral infarction without residual deficits; Z79.84 Long term (current) use of oral hypoglycemic drugs
CPT/HCPCS: 66982; 82962; V2632; J2250; J3490 ×2; A9270; C9447; 142

== ENCOUNTER → 2016-11-30 | Outpatient (CLI) | payer MEDICARE, OTHER ==
[2016-11-30 08:31] LABS: ABSOLUTE BASOPHILS # (AUTO) 0.1 10^3/uL (0.0-0.2); ABSOLUTE EOSINOPHILS # (AUTO) 0.3 10^3/uL (0.0-0.6); ABSOLUTE MONOCYTES (AUTO) 1.1 10^3/uL (0.1-1.4); ABSOLUTE NEUT (AUTO) 7.9 10^3/uL (1.7-8.2); BASOPHILS % (AUTO) 0.5 % (0-2); EOSINOPHILS % (AUTO) 2.4 % (0-6); HEMATOCRIT 44.5 % (37.9-51.0); HGB HCT DIFFERENCE -2.5; LYMPHOCYTES % (AUTO) 17.5 % (13-45); MEAN CORPUSCULAR HEMOGLOBIN 24.8 pg (27.0-33.4); MEAN CORPUSCULAR HGB CONC 31.5 g/dL (32.0-36.0); MEAN CORPUSCULAR VOLUME 79 fl (80-97); MONOCYTES % (AUTO) 9.4 % (3-13); RED BLOOD COUNT 5.65 10^6/uL (4.35-5.55); RED CELL DISTRIBUTION WIDTH 16.7 % (11.5-14.0); SEGMENTED NEUTROPHILS % (AUTO) 70.2 % (42-78); WHITE BLOOD COUNT 11.3 10^3/uL (4.0-10.5)
[2016-11-30 08:46] LABS: ALANINE AMINOTRANSFERASE 48 U/L (21-72); ALBUMIN 3.9 g/dL (3.5-5.0); ALKALINE PHOSPHATASE 109 U/L (38-126); ANION GAP 11 (5-19); ASPARTATE AMINO TRANSFERASE 35 U/L (17-59); BILIRUBIN,DIRECT 0.3 mg/dL (0.0-0.4); BILIRUBIN,TOTAL 0.7 mg/dL (0.2-1.3); BLOOD UREA NITROGEN 25 mg/dL (7-20); CALCIUM 9.4 mg/dL (8.4-10.2); CARBON DIOXIDE 33 mmol/L (22-30); CHLORIDE 95 mmol/L (98-107); CHOLESTEROL 201.19 mg/dL (0-200); Direct HDL 26 mg/dL (>40); GLUCOSE 173 mg/dL (75-110); POTASSIUM 3.8 mmol/L (3.6-5.0); SODIUM 138.7 mmol/L (137-145); TOTAL PROTEIN 7.6 g/dL (6.3-8.2); TRIGLYCERIDES 272 mg/dL (<150)
[2016-11-30 08:57] LABS: DIRECT LDL 114 mg/dL (<100)
[2016-11-30 09:04] LABS: VLDL CHOLESTEROL 54.4 mg/dL (10-31)
== END ==
LOC: LAB 08:10
PROVIDERS: ATTEND Internal Medicine
DX: E11.9 Type 2 diabetes mellitus without complications (principal); E78.5 Hyperlipidemia, unspecified; J44.1 Chronic obstructive pulmonary disease with (acute) exacerbation; I10 Essential (primary) hypertension; I25.10 Atherosclerotic heart disease of native coronary artery without angina pectoris
CPT/HCPCS: 36415; 80053; 80061; 83036; 84443; 85025